=== PATIENT | male | born 1975 | race Caucasian/White ===

== ENCOUNTER 2025-07-27 08:36 | Inpatient (IN) | payer SELFPAY ==
[~2025-07-27] VITALS: Ht 175.3 cm; Wt 86.2 kg
[2025-07-27 08:46] VITALS: O2SAT 98
[2025-07-27 09:21] LABS: BASOPHILS % 0.6 % (0.0-2.0); EOSINOPHILS % 1.8 % (0.0-5.0); HEMATOCRIT. 42.9 % (42.0-52.0); HEMOGLOBIN. 14.5 g/dL (14.0-18.0); LYMPHOCYTES % 27.6 % (20.0-50.0); MEAN PLATELET VOLUME 8.6 fl (7.4-10.4); MONOCYTES % 9.4 % (2.0-8.0); NEUTROPHILS % 60.6 % (40.0-76.0); PLATELET 203 x1000/uL (130-400); RED BLOOD CELL COUNT 4.74 mill/uL (4.7-6.1); RED CELL DISTRIBUTION WIDTH 13.0 % (11.6-14.6)
[2025-07-27] MEDS: DICYCLOMINE HCL 10MG CAPSULE PO ONE (09:23)
[2025-07-27] MEDS: MAGNESIUM/ALUMINUM HYDROXIDE/SIMETHICONE 30ML UDC PO ONE (09:23)
[2025-07-27] MEDS: FAMOTIDINE 20MG TABLET PO ONE (09:23)
[2025-07-27] MEDS ORDERED: ACETAMINOPHEN 325MG TABLET PO PRN ×2 (09:30)
[2025-07-27] MEDS ORDERED: ONDANSETRON HCL 4MG/2ML INJ IV PRN (09:30)
[2025-07-27] MEDS ORDERED: MAGNESIUM/ALUMINUM HYDROXIDE/SIMETHICONE 30ML UDC PO PRN (09:30)
[2025-07-27 09:37] LABS: CREATININE 1.0 mg/dL (0.6-1.3); UREA NITROGEN BLOOD 19 mg/dL (9-23)
[2025-07-27 09:39] LABS: ASPARTATE AMINOTRANSFERASE 20 IU/L (<34); BILIRUBIN DIRECT < 0.1 mg/dL (<=3.0); BILIRUBIN TOTAL 0.4 mg/dL (0.1-1.0); PROTEIN TOTAL 6.8 g/dL (6.0-8.3); TROPONIN I HIGH SENSITIVITY < 4 ng/L (3.0-53)
[2025-07-27] MEDS: ASPIRIN 325MG EC TABLET PO SCH (10:26)
[2025-07-27] MEDS ORDERED: CLONIDINE 0.1MG TABLET PO PRN (10:45)
[2025-07-27 11:04] VITALS: BP 127/84; PULSE 60; RESP 18; TEMP 36.5; O2SAT 98
[2025-07-27 12:08] VITALS: BP 127/84; PULSE 60; RESP 18; TEMP 36.5292
[2025-07-27 14:14] LABS: TROPONIN I HIGH SENSITIVITY < 4 ng/L (3.0-53)
[2025-07-27 14:15] LABS: PHOSPHORUS 3.3 mg/dL (2.5-4.9)
[2025-07-27 16:00] VITALS: BP 110/70; PULSE 65; RESP 19; TEMP 36.7; O2SAT 97
[2025-07-27 19:12] LABS: TRIGLYCERIDE 68 mg/dL (0-150)
[2025-07-27 19:13] LABS: LDL CHOLESTEROL 185 mg/dL (5-100); TROPONIN I HIGH SENSITIVITY < 4 ng/L (3.0-53)
[2025-07-27 19:49] LABS: HEPATITIS C AB NON REACTIVE (Neg) (Negative)
[2025-07-27 20:00] VITALS: BP 109/77; PULSE 70; RESP 18; TEMP 36.4; O2SAT 96
[2025-07-27] MEDS: ATORVASTATIN CALCIUM 40MG TABLET PO SCH (20:36)
[2025-07-27 21:33] LABS: CLARITY URINE CLEAR (CLEAR); COLOR URINE YELLOW (YELLOW); GLUCOSE URINE NEGATIVE (NEGATIVE); KETONES URINE NEGATIVE (NEGATIVE); LEUKOCYTE ESTERASE URINE NEGATIVE (NEGATIVE); NITRITE URINE NEGATIVE (NEGATIVE); OCCULT BLOOD URINE NEGATIVE (NEGATIVE); PH URINE 7.5 (4.5-8.0); PROTEIN URINE NEGATIVE (NEGATIVE); SPECIFIC GRAVITY URINE 1.016 (1.005-1.030); UROBILINOGEN URINE 0.2 E.U./dL (0.2-1.0)
[2025-07-27 21:40] LABS: *AMPHETAMINES SCREEN URINE NEGATIVE (NEGATIVE); *BARBITURATES SCREEN URINE NEGATIVE (NEGATIVE); *BENZODIAZEPINES SCREEN URINE NEGATIVE (NEGATIVE); *COCAINE SCREEN URINE NEGATIVE (NEGATIVE); CANNABINOID URINE SCREEN NEGATIVE (NEGATIVE); ECSTASY MDMA SCREEN URINE NEGATIVE (NEGATIVE); METHADONE URINE SCREEN NEGATIVE (NEGATIVE); OPIATES URINE SCREEN NEGATIVE (NEGATIVE); PHENCYCLIDINE URINE SCREEN NEGATIVE (NEGATIVE)
[2025-07-28] VITALS: BP 105/73; PULSE 74; RESP 17; TEMP 36.4; O2SAT 96
[2025-07-28 04:00] VITALS: BP 111/74; PULSE 67; RESP 17; TEMP 36.5; O2SAT 96
[2025-07-28] MEDS ORDERED: METOPROLOL TARTRATE 5MG/5ML VIAL IV PRN (07:15)
[2025-07-28 08:00] VITALS: BP 102/66; PULSE 64; RESP 18; TEMP 36; O2SAT 97
[2025-07-28] MEDS: ASPIRIN 81MG TABLET PO SCH (08:24)
[2025-07-28 08:36] LABS: BASOPHILS % 0.5 % (0.0-2.0); EOSINOPHILS % 3.0 % (0.0-5.0); HEMATOCRIT. 45.6 % (42.0-52.0); HEMOGLOBIN. 15.3 g/dL (14.0-18.0); LYMPHOCYTES % 30.7 % (20.0-50.0); MEAN PLATELET VOLUME 9.4 fl (7.4-10.4); MONOCYTES % 9.8 % (2.0-8.0); NEUTROPHILS % 56.0 % (40.0-76.0); PLATELET 211 x1000/uL (130-400); RED BLOOD CELL COUNT 5.07 mill/uL (4.7-6.1); RED CELL DISTRIBUTION WIDTH 13.3 % (11.6-14.6)
[2025-07-28 08:51] LABS: TROPONIN I HIGH SENSITIVITY < 4 ng/L (3.0-53); UREA NITROGEN BLOOD 13 mg/dL (9-23)
[2025-07-28 08:53] LABS: CREATININE 1.0 mg/dL (0.6-1.3)
[2025-07-28 08:54] LABS: LDL CHOLESTEROL 182 mg/dL (5-100); TRIGLYCERIDE 134 mg/dL (0-150)
[2025-07-28 08:55] LABS: T4 FREE 1.21 ng/dL (0.89-1.76)
[2025-07-28] MEDS ORDERED: ASPIRIN 81MG EC TABLET PO SCH (09:00)
[2025-07-28 12:00] VITALS: BP 115/81; PULSE 70; RESP 18; TEMP 36.7; O2SAT 99
[2025-07-28] MEDS: NITROGLYCERIN SPRAY/4.9GM CAN TL ONE (13:25)
[2025-07-28] MEDS ORDERED: IOHEXOL-350 100 ML BOTTLE ONE ×2 (13:49)
[2025-07-28 14:39] VITALS: BP 115/81; PULSE 70; RESP 18; TEMP 98.1
[2025-07-28] MEDS ORDERED: NITROGLYCERIN SPRAY/4.9GM CAN TL SCH (15:15)
== END 2025-07-28 16:12 | disposition home or self-care (01) | DRG 198 ==
LOC: ER 08:36 → 8WST 09:45 → ENRESERV 10:28
PROVIDERS: ADMIT Internal Medicine; ATTEND Internal Medicine
DX: I20.89 Other forms of angina pectoris (principal); E78.5 Hyperlipidemia, unspecified; N28.1 Cyst of kidney, acquired; Z82.49 Family history of ischemic heart disease and other diseases of the circulatory system; F17.210 Nicotine dependence, cigarettes, uncomplicated; I10 Essential (primary) hypertension; F41.9 Anxiety disorder, unspecified; Z79.82 Long term (current) use of aspirin
CPT/HCPCS: 36415; 71045; 75571; 76770; 80048; 80061; 80076; 80305; 81003; 82550; 83036; 83735; 83880; 84100; 84439; 84443; 84484; 85025; 85379; 86705; 87340; 93005; 99285; Q9967